=== PATIENT | female | born 2000 | race Caucasian/White ===

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

== ENCOUNTER → 2023-09-02 | Outpatient (CLI) | payer OTHER ==
[~2023-09-02] MED LIST changes: +NORCO 325 MG-51 TA1 PO; +VITAMIN D310 MC3; +ZOLOFT25 M1
== END ==
LOC: LAB 12:05
DX: E07.9 Disorder of thyroid, unspecified (principal); E55.9 Vitamin D deficiency, unspecified

== ENCOUNTER → 2023-12-06 | Outpatient (CLI) | payer OTHER | LOC: LAB 14:57 | DX: E07.9 Disorder of thyroid, unspecified (principal); Z33.1 Pregnant state, incidental ==

== ENCOUNTER 2023-12-24 12:50 | Emergency (ER) | payer OTHER ==
[~2023-12-24] VITALS: Ht 144.8 cm; Wt 80.5 kg
[2023-12-24] MEDS ORDERED: AZESCO TABLET1 EACH PO (13:06)
[2023-12-24] MEDS ORDERED: ALBUTEROL SULFAT3 M3 IH (13:06)
[2023-12-24] MEDS ORDERED: LEVO-T125 MCG PO (13:06)
[2023-12-24 15:17] VITALS: BP 108/72
== END 2023-12-24 14:45 | disposition home or self-care (01) ==
LOC: ED 12:50
DX: O21.9 Vomiting of pregnancy, unspecified (principal); O26.891 Other specified pregnancy related conditions, first trimester; R51.9 Headache, unspecified; Z3A.10 10 weeks gestation of pregnancy